=== PATIENT | female | born 1985 | race Two or more races ===

== ENCOUNTER 2017-01-10 12:32 | Emergency (ER) | payer SELFPAY ==
[~2017-01-10] VITALS: Ht 157.5 cm; Wt 63.5 kg
[2017-01-10 12:56] VITALS: BP 101/60
--- NOTE | 2017-01-10 13:12 | PHYS DOC ---
Past Medical History Past Medical History: Endometriosis, Hyperthyroid Past Surgical History: Hysterectomy Alcohol Use: None Drug Use: None Adult General Chief Complaint Chief Complaint: ALLERGIC REACTION HPI HPI Patient is a 31 year old female presents to the emergency department stating that she is having abdominal pain and was seen at last night was placed on Flagyl. Patient states she took one dose last night and felt as though her throat was closing off. She states she took another dose this morning and had the same reaction however she feels that her tongue is swollen now. She denies any shortness of breath or difficulty breathing. She has spinal signs are stable. Patient is able to talk in full sentences. Patient did take 50 mg of Benadryl prior to arrival. Review of Systems Review of Systems Constitutional: Denies fever or chills [] Eyes: Denies change in visual acuity, redness, or eye pain [] HENT: Denies nasal congestion or sore throat [] Respiratory: Denies cough or shortness of breath [] Cardiovascular: No additional information not addressed in HPI [] GI: Denies abdominal pain, nausea, vomiting, bloody stools or diarrhea [] : Denies dysuria or hematuria [] Musculoskeletal: Denies back pain or joint pain [] Integument: Denies rash or skin lesions [] Neurologic: Denies headache, focal weakness or sensory changes [] Endocrine: Denies polyuria or polydipsia [] Current Medications Current Medications Current Medications Medications (Trade) Dose Ordered Sig/Perfecto Start Time Stop Time Status Last Admin Dose Admin Famotidine (Pepcid) 20 mg 1X ONCE 01/10/17 14:00 01/10/17 14:01 DC 01/10/17 13:54 20 MG Prednisone (Prednisone) 40 mg 1X ONCE 01/10/17 14:00 01/10/17 14:01 DC 01/10/17 13:54 40 MG Allergies Allergies Allergies Coded Allergies Type Severity Reaction Last Updated Verified metronidazole Allergy Unknown 01/10/17 Yes Physical Exam Physical Exam Constitutional: Well developed, well nourished, no acute distress, non-toxic appearance. [] HENT: Normocephalic, atraumatic, bilateral external ears normal, oropharynx moist, no oral exudates, nose normal. Bilateral tympanic membranes appear to be normal. Throat does not appear to be swollen. Patient is able to talk in full sentences. She is able to swallow with no difficulty. She is not drooling. Eyes: PERRLA, EOMI, conjunctiva normal, no discharge. [] Neck: Normal range of motion, no tenderness, supple, no stridor. [] Cardiovascular:Heart rate regular rhythm, no murmur [] Lungs & Thorax: Bilateral breath sounds clear to auscultation [] Skin: Warm, dry, no erythema, no rash. [] Back: No tenderness Extremities: No tenderness, no cyanosis, no clubbing, ROM intact, no edema. [] Neurologic: Alert and oriented X 3, normal motor function, normal sensory function, no focal deficits noted. [] Psychologic: Affect normal, judgement normal, mood normal. [] Current Patient Data Vital Signs Vital Signs Date Time Temp Pulse Resp B/P (MAP) Pulse Ox O2 Delivery O2 Flow Rate FiO2 01/10/17 12:56 98.3 103 22 100 Room Air 98.3 EKG EKG [] Radiology/Procedures Radiology/Procedures [] Course & Med Decision Making Course & Med Decision Making Pertinent Labs and Imaging studies reviewed. (See chart for details) Patient had taken Benadryl prior to arrival she was provided with prednisone and Pepcid. Patient will be discharged home with prednisone with recommendations to take Pepcid [id number] 1 tablet daily for the next 7 days. She was also recommended to not take the Flagyl in which she had been prescribed. Patient will be discharged home in stable condition signs and symptoms to return back to emergency department as been provided. Patient agrees with discharge instructions treatment regimens and follow-up recommendations. [] Dragon Disclaimer Dragon Disclaimer This electronic medical record was generated, in whole or in part, using a voice recognition dictation system. Departure Departure Impression: Primary Impression: Allergic reaction caused by a drug Disposition: HOME, SELF-CARE Condition: STABLE Referrals: AKIRA HERNANDEZ MD (PCP) Patient Instructions: Allergies, Generic Additional Instructions: Activity as tolerated Medication as prescribed Benadryl 25 mg every 6 hours as needed this medication will cause drowsiness do not take if you need to be alert or oriented Stop taking the flagyl Followup with your primary care provider in 3-5 days Return to emergency department as needed for signs and symptoms that become worse. Scripts Prednisone (PREDNISONE) 20 Mg Tablet 40 MG PO DAILY for 7 Days, #14 TAB Prov: MEL BARRAGAN APRN 01/10/17 MEL BARRAGAN APRN Jan 10, 2017 13:12
[2017-01-10] MEDS ORDERED: predniSONE 20 MG TABLET PO ONE (14:00)
[2017-01-10] MEDS ORDERED: FAMOTIDINE 20 MG TABLET. PO ONE (14:00)
[2017-01-10] MEDS ORDERED: PRED20TA PO (14:39)
== END 2017-01-10 14:46 | disposition home or self-care (01) ==
LOC: ER 12:32
DX: T37.3X5A Adverse effect of other antiprotozoal drugs, initial encounter (principal); K14.8 Other diseases of tongue; E05.90 Thyrotoxicosis, unspecified without thyrotoxic crisis or storm; Y92.89 Other specified places as the place of occurrence of the external cause; Z88.8 Allergy status to other drugs, medicaments and biological substances
CPT/HCPCS: 99283; J7512

== ENCOUNTER → 2017-01-18 | Outpatient (CLI) | payer SELFPAY ==
[2017-01-10 12:56] VITALS: BP 101/60
[~2017-01-18] VITALS: Ht 157.5 cm; Wt 61.2 kg
[~2017-01-18] MED LIST: PRED20TA PO; SINCALIDE 1.22 MCG in IV NORMAL SALINE 50ML 30 ML IV ONE
--- NOTE | 2017-01-18 10:02 | RAD ---
Indication:Abdominal pain Grayscale images of the abdomen were obtained. Comparison none Liver:The visualized liver appears normal. Gallbladder:Normal. The common bile duct diameter of approximately 4 mm is normal Spleen:Normal Pancreas:As visualized normal Kidneys:Normal Abdominal aorta and IVC:Normal Ancillary findings:None Impression:Normal study
--- NOTE | 2017-01-18 14:11 | RAD ---
Indication epigastric pain. Hepatobiliary scan was performed. 5.5 mCi of technetium labeled Choletec was administered. 1.2 mcg of CCK was diluted in saline and administered over several minutes. Following the CCK infusion a gallbladder ejection fraction calculation was made. There is normal uptake of the radiopharmaceutical in the liver. Activity is seen early in the biliary system, gallbladder and small bowel. Following the Kinevac administration the estimated gallbladder ejection fraction is approximately 53%. This is normal. IMPRESSION: Normal study
== END | disposition home or self-care (01) ==
LOC: US 08:36
PROVIDERS: ATTEND Family Medicine
DX: R10.9 Unspecified abdominal pain (principal)
CPT/HCPCS: 76700; 78226; 96374; 96375; A9537; J2805

== ENCOUNTER → 2017-06-13 | Outpatient (CLI) | payer OTHER | END | disposition home or self-care (01) | LOC: US 14:54 | DX: E03.9 Hypothyroidism, unspecified (principal) | CPT/HCPCS: 76536 ==

== ENCOUNTER → 2021-08-04 | Outpatient (CLI) | payer OTHER ==
[~2021-08-04] MED LIST changes: -SINCALIDE 1.22 MCG in IV NORMAL SALINE 50ML 30 ML IV ONE
--- NOTE | 2021-08-04 16:03 | RAD ---
EXAMINATION: MG DIAGNOSTIC BILAT, US BREAST RT History: Right breast lump and tenderness. Significant weight loss over the past year due to small jeremias wel infection and dietary allergies. Comparison: None. Baseline exam. Technique: Bilateral digital diagnostic mammogram views were obtained. CAD was utilized. Subsequent right breast ultrasound was performed in the area of concern. Findings: Breast Tissue Density D :The breasts are extremely dense, which lowers the sensitivity of mammography . A palpable marker is seen at the 10:00 position middle depth. No abnormality deep to marker. There is an asymmetry in the inferior right breast on MLO and ML view. No mass in the left breast. No suspici ous microcalcifications, or architectural distortion. Focused ultrasound of the outer and inferior right breast was performed from 3:00 to 10:00. During th e ultrasound, the patient pointed to the 6:00 retroareolar region at the site of palpable abnormality and pain. At 3:00 4 cm from the nipple, there is a hypoechoic mass measuring 3 x 2 x 3 mm. This has slightly ir regular margins but posterior acoustic enhancement. This is most likely a minimally complicated cyst. At 6:00 in the retroareolar region, there is an anechoic simple cyst measuring 4 x 2 x 5 mm. There is an area of dense tissue immediately adjacent to this. At 10:00 3 cm from the nipple, there is an anechoic simple cyst measuring 4 x 2 x 5 mm. No abnormal lymph nodes in the axilla. IMPRESSION: 1. Probably benign 3 mm hypoechoic right mass at 3:00 4 cm from the nipple, likely a minimally comple x cyst. There are additional simple cysts seen at 6:00 and 10:00. One of these correlates with the ar ea of palpable abnormality and pain. Recommend 6 month follow-up ultrasound of the right breast to en sure stability. BI-RADS category 3: Probably benign. The images were reviewed with computer aided detection. Patient information is entered into the reminder system with a target due date for the next screening mammogram. Mammography is the most sensitive method for finding small breast cancers, but it does not detect the m all and is not a substitute for careful clinical examination. A negative mammogram does not negate a clinically suspicious finding and should not result in delay in biopsying a clinically suspicious a bnormality. If your mammogram demonstrates that you have dense breast tissue, which could hide abnormalities, and if you have other risk factors for breast cancer that have been identified, you might benefit from s upplemental screening tests that may be suggested by your ordering physician. Dense breast tissue, i n and of itself, is a relatively common condition. This information is not provided to cause undue c oncern, but rather to raise your awareness and to promote discussion with your physician regarding th e presence of other risk factors, in addition to dense breast tissue. A report of your mammography re sults will be sent to you and your physician. You should contact your physician if you have any ques tions or concerns regarding this report. "Our facility is accredited by the [employer] Mammography Program." Electronically signed by: Candi Winkler MD (08/04/2021 4:01 PM) [id number]
== END ==
LOC: MAMMO 13:14
PROVIDERS: ATTEND Family Medicine
DX: N60.01 Solitary cyst of right breast (principal)
CPT/HCPCS: 76641; 77066